=== PATIENT | female | born 1945 | race Caucasian/White ===

== ENCOUNTER 2017-08-01 08:02 | Outpatient (CLI) | payer MEDICARE, BC ==
[2017-08-01] MEDS ORDERED: Iopamidol 370 76% 100 ML VIAL ONE (11:56)
== END 2017-08-01 08:03 | disposition home or self-care (01) ==
LOC: BICCT 08:02
PROVIDERS: ATTEND Urology
DX: N39.0 Urinary tract infection, site not specified (principal)
CPT/HCPCS: 74178

== ENCOUNTER 2018-03-23 11:25 | Inpatient (IN) | payer MEDICARE, BC ==
[2018-03-23 13:15] LABS: #Basophils 0.1 thou/uL (0.0-0.2); #Eosinphils 0.4 thou/uL (0.0-0.7); #Lymphocytes 2.3 thou/uL (1.20-3.40); #Monocytes 0.5 thou/uL (0.11-0.59); #Neutrophils 6.5 thou/uL (1.40-6.50); %Basophils 0.7 % (0.0-1.0); %Lymphocytes 23.2 % (21.0-51.0); %Monocytes 4.7 % (0.0-10.0); %Neutrophils 67.4 % (42.0-75.0); Hemoglobin 14.4 g/dL (12.0-16.0); Mean Corpuscular HGB CONC 32.7 g/dL (32.0-36.0); Mean Corpuscular Hemoglobin 29.1 pg (27.0-31.0); Mean Corpuscular Volume 89.1 fL (78.0-98.0); Mean Platelet Volume 8.7 fL (7.4-10.4); Platelet Count 256 thou/uL (130-400); RBC Distribution Width 13.5 % (11.5-14.5); Red Blood Cell (RBC) Count 4.94 mill/uL (4.20-5.40); White Blood Cell (WBC) Count 9.7 thou/uL (4.8-10.8)
[2018-03-23 13:22] LABS: PTT 25.6 SEC (22.9-36.1); Prothrombin Time 13.1 SEC (12.0-14.7)
[2018-03-23 13:35] LABS: ALT (SGPT) 15 U/L (8-55); AST (SGOT) 23 U/L (5-34); Albumin 3.8 g/dL (3.4-4.8); Alkaline Phosphatase 76 U/L (40-150); Anion Gap 18 mmol/L (10-20); BUN (Urea Nitrogen) 16 mg/dL (9.8-20.1); Bilirubin, Total 0.6 mg/dL (0.2-1.2); CK (CPK) 51 U/L (29-168); Calc. Creatinine Clearance 0 mL/min (70-130); Calcium 9.3 mg/dL (7.8-10.44); Carbon Dioxide 23 mmol/L (23-31); Chloride 101 mmol/L (98-107); Estimated GFR-MDRD 51; Glucose 332 mg/dL (83-110); Potassium 4.7 mmol/L (3.5-5.1); Protein, Total 7.8 g/dL (6.0-8.3); Sodium 137 mmol/L (136-145)
--- NOTE | 2018-03-23 14:03 | CT ---
CT OF THE HEAD: Date: 03/23/18 COMPARISON: None. HISTORY: Left-sided facial pain, head pain, and left-sided facial tingling. TECHNIQUE: Axial CT imaging at 5 mm intervals from vertex through skull base without contrast. FINDINGS: The visualized paranasal sinuses and mastoid air cells are well aerated. No displaced calvarial fracture is noted. There is no intracranial hemorrhage, midline shift, mass effect, or ventricular enlargement. IMPRESSION: No intracranial hemorrhage or displaced calvarial fracture. POS: KAYLEEN
[2018-03-23] MEDS ORDERED: Acetaminophen 325 MG TAB ONE (14:38)
[2018-03-23] MEDS ORDERED: Aspirin 325 MG TAB ONE (14:39)
[2018-03-23] MEDS ORDERED: hydrALAZINE 20 MG/ML VIAL SLOW IVP PRN (15:22)
[2018-03-23] MEDS ORDERED: Insulin Regular 300 UNITS/3 ML VIAL SC PRN (15:22)
[2018-03-23 16:06] VITALS: BMI 51.5
[2018-03-23] MEDS ORDERED: Senokot S 8.6-50 MG TAB PO PRN (16:49)
[2018-03-23] MEDS ORDERED: Acetaminophen 325 MG TAB PO PRN (16:49)
[2018-03-23] MEDS ORDERED: HYDROcodone/Acetaminophen 5/325 mg Tablet PO PRN (16:49)
[2018-03-23] MEDS: Glimepiride 2 MG TAB PO SCH (16:58)
[2018-03-23 17:06] LABS: Troponin I Less than 0.010 ng/mL (< 0.028)
--- NOTE | 2018-03-23 18:55 | ULT ---
BILATERAL CAROTID DUPLEX ULTRASOUND: 03/23/18 HISTORY: Left sided facial droop. TECHNIQUE: Rene scale ultrasound with color flow and spectral doppler imaging of the extracranial carotid artery systems is performed bilaterally. FINDINGS: There is plaque formation on either side. The peak systolic velocity in the right ICA measures 99 cm/s with an end diastolic velocity of 2.4 cm /s and systolic ratio of 1.3. The peak systolic velocity in the left ICA measures 186 cm/s with an end diastolic velocity of 28 cm/ s and systolic ratio of 1.9. Flow in both vertebral arteries remains antegrade. IMPRESSION: Moderate (50-69%) stenosis involving the left ICA. POS: [facility]
[2018-03-23 20:03] LABS: Troponin I Less than 0.010 ng/mL (< 0.028)
[2018-03-23] MEDS ORDERED: Escitalopram Oxalate 20 mg Tablet PO SCH (21:00)
[2018-03-23] MEDS ORDERED: Atorvastatin Calcium 20 MG TAB PO SCH (21:00)
[2018-03-23] MEDS ORDERED: Alogliptin 25 MG TAB PO SCH (21:00)
[2018-03-23] MEDS ORDERED: Atorvastatin Calcium 40 MG TAB PO SCH (21:00)
[2018-03-23] MEDS: HumaLOG 300 UNITS/3 ML VIAL SC PRN (21:29)
[2018-03-23] MEDS: Famotidine 20 MG TAB PO SCH (21:29)
[2018-03-23] MEDS ORDERED: Melatonin 3 MG TAB PO PRN (22:36)
--- NOTE | 2018-03-23 23:03 | HP ---
PRIMARY CARE PHYSICIAN: None. CHIEF COMPLAINT: Left-sided facial droop with tingling. HISTORY OF PRESENT ILLNESS: Ms. Benítez is a very pleasant 73-year-old female who presented to the emergency room today with a chief complaint of left-sided facial pain and tingling. She was also noted to have a left-sided facial droop headache also this morning when she woke up, which is unusual for her. Reports battling a kind of a viral pharyngitis earlier in the week with chills, but no fever. History is pertinent for cervical cancer, breast cancer with lymph node involvement, hypertension, diabetes, Yesenia's, and recurrent UTIs. She reports that she is currently in remission for her breast cancer that was in 2012. She denies any difficulty talking or swallowing. Denies any focal weakness or sensory changes. Reports primary issue is the pain and the tingling on the left side of her face, which she reports on admission is improving. Vital signs in the ER; blood pressure 146/81, pulse is 91, respiratory rate is 16, temp 98.0, and pulse ox is 98% on room air. EKG in the ER shows a sinus jade, beats per minute 56, no ectopics; ST-segment and T-waves, nonspecific changes to the T-waves, ID interval is 214. The patient was initially seen by urgent care and sent over to the emergency for further evaluation. Her NIH score is 2, 1 for the paresthesia of the face and 1 point for a slight facial droop on the left. Based on symptoms and past medical history, the patient was admitted to the stroke unit in observation for further management. PAST MEDICAL HISTORY: As above. Hypertension, cervical cancer in 1972, breast cancer in 2012, bilateral mastectomy, diabetes 2, Yesenia's with thyroid removed, and hysterectomy. PAST SURGICAL HISTORY: Bilateral breast mastectomy, hysterectomy, and thyroidectomy. 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 SOCIAL HISTORY: Denies alcohol or drug use. No smoking history. Lives at home. REVIEW OF SYSTEMS: The patient was examined. Reports lingering tingling to left side of her face. Reports headache is improved. Reports a very slight sore throat, much improved from earlier in the week. Denies cough, cold, or congestion. Reports chills earlier in the week, none today. Denies fever. Denies abdominal pain, nausea, vomiting, or diarrhea. Denies dysuria or increased frequency. All other systems reviewed and are negative unless mentioned in the HPI. PHYSICAL EXAMINATION: CONSTITUTIONAL: The patient appears pain free, is in no distress. The patient is alert and oriented to person, place, and time. HEAD: Atraumatic and normocephalic. EYES: Eyelids are normal to inspection. Pupils are equally round and reactive to light. Extraocular muscles are intact. ENT: Mouth exam is normal. Mucous membranes are moist. Teeth are normal. NECK: Normal range of motion. No cervical adenopathy. No tenderness. RESPIRATORY AND CHEST: Breath sounds are clear, in no respiratory distress. CARDIOVASCULAR: Heart sounds are normal. Regular rate and rhythm. ABDOMEN: Nontender on palpation. Bowel sounds are heard. BACK: Normal inspection. Normal range of motion. No tenderness. EXTREMITIES: Upper extremities; normal range of motion. Motor strength is normal. Sensation is intact. Radial pulses are equal bilaterally. Lower extremity; normal inspection. Normal range of motion. Sensation intact. Pedal pulses are normal. No edema is noted. NEURO: Cranial nerves 2 through 12 are grossly intact. No focal motor or sensory deficits are noted. No cerebellar deficits. No nystagmus. The patient is oriented to person, place, and time. Speech is normal. SKIN: Warm, dry, and normal in color. No rash. PSYCH: Normal affect. ALLERGIES: INCLUDE ADHESIVE TAPE, AZITHROMYCIN, AND SULFA. MEDICATIONS: The patient's home medicines include; 1. Arimidex 1 mg p.o. daily. 2. Aspirin 81 mg p.o. daily. 3. Escitalopram 20 mg p.o. daily. 4. Amaryl 2 mg p.o. b.i.d. 5. Levothyroxine p.o. daily. 6. Losartan/hydrochlorothiazide 1 p.o. daily. 7. Pantoprazole 40 mg p.o. daily. 8. Onglyza 1 tab p.o. daily. 9. Zocor 40 mg p.o. at bedtime. LABORATORY DATA: Pertinent labs; white blood cell count is 9.7, hemoglobin 14.4, hematocrit 44, and platelet count is 256. PT 13.1, INR 1, and APTT is 25.6. Sodium 137, potassium 4.7, chloride 101, BUN is 16, creatinine is 1.05, estimated GFR is 51, glucose is 332, and calcium 9.3. Liver enzymes are unremarkable. Troponin is undetectable. ASSESSMENT/PLAN: 1. Left-sided facial droop and tingling. We will obtain a brain MRI. CT scan of the brain done in the ER shows no intracranial hemorrhage or displaced condylar fracture. We will obtain Doppler ultrasound and echocardiogram. We will consult Dr. Garcia for his input. We will obtain labs, lipids, and TSH. 2. Diabetes. We will continue home medication. We will supplement with sliding scale insulin as needed. 3. Hypertension. We will continue home medication. We will monitor closely. 4. Hyperlipidemia. We will continue home medication. 5. Hypothyroidism. We will continue home medication. We will obtain a TSH. 6. Deep vein thrombosis and gastrointestinal prophylaxis will be ordered as necessary. 7. Hospital course will be dependent on clinical findings. Job ID: [id number]
[2018-03-23 23:33] LABS: Bilirubin Negative (Negative); Blood, Urine Negative (Negative); Clarity CLEAR (Clear); Glucose, Urine (Dipstick) Negative (Negative); Leukocyte Trace (Negative); Nitrite Negative (Negative); Protein, Urine (Dipstick) Negative (Neg-Trace); Specific Gravity, Urine 1.012 (1.002-1.036); Urobilinogen 0.2 mg/dL (0.2-1.0); pH, Urine 5.5 (5.0-9.0)
[2018-03-23 23:35] LABS: Bacteria/HPF None Seen HPF (None Seen); Hyaline Casts/LPF 0-3 HYALINE CAST LPF (0-3 Hyaline); Pathc Cast-AUWi Flag 0.14 (0-2.49); RBC/HPF 0-3 HPF (0-3); Squamous Epithelial 0-3 HPF (0-3)
[2018-03-24] MEDS ORDERED: Levothyroxine Sodium 88 MCG TAB PO SCH ×2 (06:00→07:30)
[2018-03-24 06:08] LABS: #Basophils 0.1 thou/uL (0.0-0.2); #Eosinphils 0.4 thou/uL (0.0-0.7); #Lymphocytes 2.9 thou/uL (1.20-3.40); #Monocytes 0.6 thou/uL (0.11-0.59); #Neutrophils 5.9 thou/uL (1.40-6.50); %Basophils 0.9 % (0.0-1.0); %Eosinophils 3.5 % (0.0-10.0); %Lymphocytes 29.5 % (21.0-51.0); %Monocytes 6.3 % (0.0-10.0); %Neutrophils 59.8 % (42.0-75.0); Hemoglobin 12.6 g/dL (12.0-16.0); Mean Corpuscular HGB CONC 32.3 g/dL (32.0-36.0); Mean Corpuscular Hemoglobin 28.5 pg (27.0-31.0); Mean Corpuscular Volume 88.4 fL (78.0-98.0); Mean Platelet Volume 8.5 fL (7.4-10.4); Platelet Count 247 thou/uL (130-400); RBC Distribution Width 13.3 % (11.5-14.5); Red Blood Cell (RBC) Count 4.41 mill/uL (4.20-5.40); White Blood Cell (WBC) Count 9.9 thou/uL (4.8-10.8)
[2018-03-24] MEDS: HumaLOG 300 UNITS/3 ML VIAL SC PRN ×2 (06:08→11:08)
[2018-03-24 06:26] LABS: ALT (SGPT) 12 U/L (8-55); AST (SGOT) 11 U/L (5-34); Albumin 3.5 g/dL (3.4-4.8); Alkaline Phosphatase 72 U/L (40-150); Anion Gap 16 mmol/L (10-20); BUN (Urea Nitrogen) 25 mg/dL (9.8-20.1); Bilirubin, Total 0.4 mg/dL (0.2-1.2); Calc. Creatinine Clearance 100 mL/min (70-130); Calcium 9.4 mg/dL (7.8-10.44); Carbon Dioxide 25 mmol/L (23-31); Cardiac Risk 2.7 (Less than 4.5); Chloride 104 mmol/L (98-107); Cholesterol 142 mg/dl (< 200 Desired); Estimated GFR-MDRD 58; Globulin 3.2 g/dL (2.4-3.5); Glucose 189 mg/dL (83-110); HDL Cholesterol 52 mg/dL (>60 Neg Risk); LDL Cholesterol, Calculated 67 mg/dL; Potassium 3.6 mmol/L (3.5-5.1); Protein, Total 6.7 g/dL (6.0-8.3); Sodium 141 mmol/L (136-145); Triglycerides 115 mg/dL (Less than 150)
[2018-03-24 06:46] LABS: Free T4 (Free Thyroxine) 0.96 ng/dL (0.70-1.48); Thyroid Stimulating Hormone 1.998 uIU/mL (0.35-4.94)
[2018-03-24] MEDS: Glimepiride 2 MG TAB PO SCH (08:09)
[2018-03-24] MEDS: Famotidine 20 MG TAB PO SCH (08:09)
[2018-03-24] MEDS ORDERED: Alogliptin 25 MG TAB PO SCH (09:00)
[2018-03-24] MEDS ORDERED: Escitalopram Oxalate 20 mg Tablet PO SCH (09:00)
[2018-03-24] MEDS ORDERED: Aspirin 81 mg Enteric Coated Tablet PO SCH (09:00)
[2018-03-24] MEDS ORDERED: Anastrozole 1 MG TAB PO SCH (09:00)
--- NOTE | 2018-03-24 09:22 | PDOC.EVN ---
Event Note - Event Note Event Note: pt seen and examined bedside, agree with DERMATOLOGICAL SURGEON H & P, MRI pending, neurology consulted, other investigation are normal, after MRI and neurology, pt can be discharged if tests OK.
--- NOTE | 2018-03-24 11:28 | CT ---
CT ANGIOGRAM HEAD CT ANGIOGRAM NECK: Date: 03/24/18 HISTORY: Left carotid stenosis noted on prior ultrasound, history of left-sided facial droop. TECHNIQUE: Axial CT imaging at 5 mm intervals from the vertex through the skull base without contrast. Subsequen tly, following the administration of IV contrast, axial CT imaging at 1.25 mm intervals from vertex t hrough lung apices obtained using a CT angiogram protocol. Coronal and sagittal 3D reformatted imagin g obtained. FINDINGS: Noncontrast enhanced CT head demonstrates no intracranial hemorrhage, midline shift, or mass effect. Imaged paranasal sinuses and mastoid air cells well aerated. No displaced calvarial fracture. The imaged lung apices are unremarkable. The retroantral fat, the parapharyngeal fat, the parotid glands, the submandibular glands, the region of the tonsillar pillars, the epiglottis and preepiglottic fat, the hyoid bone, the thyroid cartilag e, and the cricoid cartilage appear grossly unremarkable. The thyroid gland is hypoplastic and may be postsurgically absent on the right. Clinical correlation required. There is mild atherosclerotic calcification at the origin of the left subclavian artery. There is no hemodynamically significant stenosis involving the origin of the innominate artery, right subclavian artery, right common carotid artery, left common carotid artery, or left subclavian artery. Bilateral vertebral arteries are patent. No hemodynamically significant stenosis is seen involving ei ther vertebral artery. The left common carotid artery is tortuous proximally. On the basis of NASCET criteria, there is no h emodynamically significant stenosis involving the common carotid artery on either side. There is mild calcified plaque at the proximal aspect of the left internal carotid artery. On the bas is of NASCET criteria, there is no hemodynamically significant stenosis involving the internal caroti d artery on either side. No lymphadenopathy is noted within the neck. CT angiography of the head demonstrates a patent basilar artery. There is a patent posterior communic ating artery on the right, which appears to represent a origin of the right posterior cerebral artery. No vascular occlusion, high grade stenosis, or saccular aneurysms seen within the posterior c irculation. There is atherosclerotic calcification of bilateral cavernous carotid arteries. The ICA bifurcation a ppears normal bilaterally. Patient bilateral A1 segment and distal JEANNETTE branches. M1 segment and MCA b ifurcation is grossly unremarkable bilaterally, and distal MCA branches appear intact. Review of the osseous structures of the head and neck demonstrate no worrisome lytic or blastic lesio ns. There is degenerative change at the atlantoaxial interspace. IMPRESSION: 1. Noncontrast enhanced head CT demonstrates no evidence for intracranial hemorrhage, midline shift, or mass effect. 2. No hemodynamically significant stenosis involving the internal or common carotid artery on either side. 3. CT angiogram of the head demonstrates no high grade stenosis, vascular occlusion, or saccular ane urysm. POS: KAYLEEN
--- NOTE | 2018-03-24 11:39 | MRI ---
BRAIN MRI WITHOUT CONTRAST: Date: 03/24/18 COMPARISON: None. HISTORY: Left-sided jaw pain, tingling of the left side of the face, left facial droop. TECHNIQUE: Multiplanar, multisequence MR imaging of the brain obtained without contrast. FINDINGS: The axial gradient echo imaging demonstrates no evidence for intracranial hemorrhage. There is no sara dence for acute infarction on the diffusion-weighted imaging. The imaged paranasal sinuses and mastoid air cells demonstrate no significant opacification. Arterial flow-voids at the axial level of the skull base appear grossly unremarkable on the T2-weighted imagi ng. Regional bone marrow signal intensity appears grossly unremarkable on the sagittal T1-weighted im aging. FLAIR imaging demonstrates multiple scattered subcentimeter foci of increased signal within the periv entricular, deep, and subcortical white matter, suggesting a degree of small vessel disease. IMPRESSION: Evidence of small vessel disease. No intracranial hemorrhage or evidence of acute infarction. POS: [facility]
[2018-03-24 12:32] VITALS: BP 143/64; TEMP 98.5
--- NOTE | 2018-03-24 15:49 | CON ---
DATE OF CONSULTATION: 03/24/2018 TYPE OF CONSULTATION: Neurology. CONSULTING PHYSICIAN: Hospitalist Service. IMPRESSION: Facial neuralgic pain, possibly secondary to underlying dental problems. PLAN: The patient will be discharged home for outpatient followup. HISTORY OF PRESENT ILLNESS: Ms. Benítez is a 73-year-old white female with a past history of elevated lipids, diabetes, and hypertension. She has had a sensitive tooth in the left upper region of her mouth for some time now. She experienced fairly abrupt severe pain in the left maxillary area. This lasted 10 or 15 minutes. She came to the ER to have it checked out. She has not had any recurrent symptoms today. She had an MRI of the brain done, which I reviewed and appears unremarkable. She had a subconjunctival hemorrhage about a week ago, but otherwise has not had any ongoing problems on the left. She has had some intermittent jaw pain on the right for several months now. There is no associated slurred speech, difficulty swallowing, or lateralized weakness or numbness. PAST MEDICAL HISTORY: As listed above. ALLERGIES: TAPE, AZITHROMYCIN, AND SULFA. SOCIAL HISTORY: No tobacco or alcohol use. FAMILY HISTORY: Noncontributory. MEDICATION LIST: Reviewed. REVIEW OF SYSTEMS: Otherwise negative. PHYSICAL EXAMINATION: GENERAL: She is a somewhat overweight, elderly woman, in no distress. VITAL SIGNS: Blood pressure 142/65, pulse 56, and respirations 20. HEENT: Pupils are equal and reactive. Conjunctivae clear. Oropharynx clear. TMJ movement was painless. No facial tenderness was elicited. NECK: Supple. No lymphadenopathy. EXTREMITIES: No cyanosis. NEUROLOGIC: She is alert and appropriate. Her speech is fluent and clear. Exam was nonfocal. SUMMARY: This is a 73-year-old woman with left facial pain, possibly secondary to some underlying dental problems. I do not see any acute neurologic issues here. She can be discharged home to follow up with her dentist. Job ID: [id number]
--- NOTE | 2018-03-25 01:04 | DIS ---
DATE OF ADMISSION: 03/23/2018 DATE OF DISCHARGE: 03/24/2018 PRIMARY CARE PHYSICIAN: PCP is out of town. PHARMACY TECHNICIAN TRAINEE: Dr. Garcia. PROCEDURES: Brain CT. No intracranial hemorrhage or displaced calvarial fracture. Carotid Doppler study, moderate 50% to 69% stenosis involving the left ICA. Echocardiogram, ejection fraction visually estimated at 50% to 55%. Mild mitral regurgitation. Mild tricuspid regurgitation. CT angio of the neck and head. No evidence of intracranial hemorrhage, midline shift, or mass effect. No hemodynamically significant stenosis involving the internal common carotid artery on either side. CT angio of the head demonstrates no high-grade stenosis, vascular occlusion, or saccular aneurysm. Brain MRI, evidence of small-vessel disease. No intracranial hemorrhage or evidence of acute infarction. HOSPITAL COURSE: Ms. Benítez is a very pleasant 73-year-old female who presented to the emergency room at [facility] on day of admission with a complaint of left-sided facial and head pain. Reports left-sided facial tingling and she woke up this morning, reports slight left-sided mouth droop. Denies any difficulty talking, swallowing, weakness or any sensory changes. Denies any focal sensory or motor deficits in arms and legs. Reports getting over viral respiratory infection. NIH was 2 for the sensory changes and for the mouth droop. Based on symptoms and history, the patient was admitted to the stroke unit for a TIA workup. Procedure is as described above, were performed. Dr. Garcia was able to visit with the patient, decided that she needed to have a dental evaluation as she told him that she had been having a particular tooth on the left side of her lower jaw that had been very sensitive, but denied any specific pain, injury or trauma to her mouth. Her vital signs remained stable. No further symptoms. Labs are unremarkable and the patient will be sent home on aspirin and statins, which she is currently already taking. DISCHARGE DIAGNOSES: 1. Transient ischemic attack although trigeminal neuralgia, tooth, origin cannot be excluded. 2. Hypertension. 3. Hypothyroidism. 4. Hyperlipidemia. 5. Anxiety. 6. Depression. REVIEW OF SYSTEMS: The patient denied any sensory changes to her face, still has a mild mouth droop, otherwise has no complaints. Denies headache, neck pain, palpitations, chest pain, shortness of breath, abdominal pain, nausea, vomiting, diarrhea, or dysuria. All other systems were reviewed and remain negative unless mentioned in the hospital course. PHYSICAL EXAMINATION: VITAL SIGNS: Temperature is 98.5, pulse is 55, respirations 20, O2 saturation 93% on room air, and blood pressure 143/64. CONSTITUTIONAL: The patient appears pain free, is in no distress. The patient is alert and oriented to person, place, and time. HEENT: Head is atraumatic and normocephalic. Does have slight left-sided droop to the mouth. Eyes, eyelids are normal to inspection. Pupils are equally round and reactive to light. Extraocular muscles are intact. ENT, mouth exam is normal. Mucous membranes are moist. Teeth are normal. NECK: Normal range of motion. No cervical adenopathy. No tenderness. RESPIRATORY: Chest, breath sounds are clear, in no respiratory distress. CARDIOVASCULAR: Heart sounds are normal. Regular rate and rhythm. ABDOMEN: Nontender on palpation. Bowel sounds are heard. BACK: Normal inspection. Normal range of motion. No tenderness. EXTREMITIES: Upper extremities normal range of motion. Motor strength is normal. Sensation intact. Radial pulses are equal bilaterally. Lower extremities normal inspection. Normal range of motion. Sensation is intact. Pedal pulses are normal. No edema is noted. NEURO: Cranial nerves II through XII are grossly intact. No focal motor or sensory deficits are noted. No cerebellar defect. No nystagmus. The patient is oriented to person, place, and time. Speech is normal. SKIN: Warm, dry, normal in color. No rash. PSYCH: Normal affect. ALLERGIES: ALLERGIES INCLUDE ADHESIVE TAPE, AZITHROMYCIN, AND SULFA. MEDICATIONS: Medications will be restarted on discharge; 1. Arimidex 1 mg p.o. daily. 2. Aspirin 81 mg p.o. daily. 3. Lexapro 20 mg p.o. daily. 4. Amaryl 2 mg p.o. b.i.d. 5. Levothyroxine 88 mcg p.o. daily. 6. Losartan/hydrochlorothiazide 1 tablet p.o. daily. 7. Nexium 40 mg p.o. daily. 8. Onglyza 1 tablet p.o. daily. 9. Zocor 40 mg p.o. at bedtime. The patient reports that she stopped taking the Arimidex 1 mg p.o. daily and that was not restarted on discharge. The patient's condition is stable. The patient will be discharged home. The patient should follow up with her primary care which is currently out of town. Several suggestions were given. Instructed to potentially check out the web-site for PCP referral. She also follow up with Dr. Garcia in the next several weeks whenever he has his next available appointment. Job ID: [id number]
== END 2018-03-24 13:06 | disposition home or self-care (01) | DRG 69 ==
LOC: ERS 11:25 → 2SE 14:25
PROVIDERS: ADMIT Internal Medicine; ATTEND Internal Medicine
DX: G45.9 Transient cerebral ischemic attack, unspecified (principal); R29.810 Facial weakness; I10 Essential (primary) hypertension; E11.9 Type 2 diabetes mellitus without complications; E06.3 Autoimmune thyroiditis; E78.5 Hyperlipidemia, unspecified; E03.9 Hypothyroidism, unspecified; I08.1 Rheumatic disorders of both mitral and tricuspid valves; F41.9 Anxiety disorder, unspecified; G50.0 Trigeminal neuralgia; F32.9 Major depressive disorder, single episode, unspecified; Z79.82 Long term (current) use of aspirin; Z88.2 Allergy status to sulfonamides; Z85.41 Personal history of malignant neoplasm of cervix uteri; Z85.3 Personal history of malignant neoplasm of breast; Z90.13 Acquired absence of bilateral breasts and nipples
CPT/HCPCS: 36415; 36416; 70450; 70496; 70498; 70551; 80053; 80061; 81001; 82550; 84439; 84443; 84481; 84484; 85025; 85610; 85730; 93005; 93306; 93880; G0378; J1815

== ENCOUNTER 2018-05-05 06:17 | Emergency (ER) | payer MEDICARE, BC ==
[2018-05-05] MEDS ORDERED: Ondansetron ODT 8 MG TAB ONE (07:18)
--- NOTE | 2018-05-05 08:46 | CT ---
CT OF THE BRAIN WITHOUT CONTRAST: Date: 05/05/18 INDICATION: History of fall, with contusion to back of head and vomiting. COMPARISON: Prior exam dated 03/23/18. FINDINGS: No acute infarct, hemorrhage, or hydrocephalus is present. Septum pellucidum and third ventricle are midline. The skull is intact. No large contusion is demonstrated involving the scalp. IMPRESSION: No acute intracranial abnormality. POS: [facility]
--- NOTE | 2018-05-05 08:48 | CT ---
CT CERVICAL SPINE WITHOUT CONTRAST: Date: 05/05/18 INDICATION: Fall with neck pain. COMPARISON: None. FINDINGS: There is mild multilevel spondylosis of cervical spine with multilevel facet osteoarthritic change. F acet osteoarthritic change is most pronounced at C3-4, C4-5, and C5-6. There is disc degenerative dis ease at C5-6. Craniocervical junction appears within normal limits. The prevertebral soft tissues antionette ear within normal limits. Lung apices are clear. IMPRESSION: No acute osseous abnormality. POS: [facility]
== END 2018-05-05 07:25 | disposition home or self-care (01) ==
LOC: ERS 06:17
DX: S06.0X0A Concussion without loss of consciousness, initial encounter (principal); S83.91XA Sprain of unspecified site of right knee, initial encounter; R11.2 Nausea with vomiting, unspecified; W01.198A Fall on same level from slipping, tripping and stumbling with subsequent striking against other object, initial encounter
CPT/HCPCS: 70450; 72125

== ENCOUNTER 2018-10-02 12:58 | Outpatient (CLI) | payer MEDICARE, BC ==
--- NOTE | 2018-10-02 14:45 | RAD ---
TWO VIEW CHEST: 10/02/18 HISTORY: Shortness of breath. Lungs are clear of infiltrate. Heart and mediastinum unremarkable. Vasculature normal. IMPRESSION: No acute process. POS: [facility]
== END 2018-10-02 12:59 | disposition home or self-care (01) ==
LOC: BICRAD 12:58
PROVIDERS: ATTEND Physician Assistant
DX: R06.02 Shortness of breath (principal)
CPT/HCPCS: 36415; 71046; 80053; 83880; 84484; 85025

== ENCOUNTER 2018-11-11 10:14 | Outpatient (CLI) | payer MEDICARE, BC ==
--- NOTE | 2018-11-11 14:13 | BD ---
DEXA BONE DENSITY EXAM: HISTORY: A 73-year-old postmenopausal female for screening. FINDINGS: LUMBAR SPINE BMD (g/cm2) T-SCORE L1 0.725 -2.4 L2 0.681 -3.2 L3 0.879 -1.9 L4 0.653 -3.7 TOTAL L1-L4 0.731 -2.9 LEFT FEMORAL NECK 0.584 -2.4 TOTAL PROXIMAL LEFT FEMUR 0.773 -1.4 IMPRESSION: Osteoporosis. POS: KAYLEEN
== END 2018-11-11 10:15 | disposition home or self-care (01) ==
LOC: BICMAMMO 10:14
PROVIDERS: ATTEND Internal Medicine Hematology & Oncology
DX: Z13.820 Encounter for screening for osteoporosis (principal); C50.112 Malignant neoplasm of central portion of left female breast; T38.6X5A Adverse effect of antigonadotrophins, antiestrogens, antiandrogens, not elsewhere classified, initial encounter; M81.0 Age-related osteoporosis without current pathological fracture
CPT/HCPCS: 77080

== ENCOUNTER 2020-06-25 14:41 | Outpatient (CLI) | payer MEDICARE, BC | END 2020-06-25 14:42 | disposition home or self-care (01) | LOC: BICMAMMO 14:41 | PROVIDERS: ATTEND Internal Medicine Hematology & Oncology | DX: M81.0 Age-related osteoporosis without current pathological fracture (principal); T38.6X5A Adverse effect of antigonadotrophins, antiestrogens, antiandrogens, not elsewhere classified, initial encounter; C50.112 Malignant neoplasm of central portion of left female breast | CPT/HCPCS: 77080 ==